=== PATIENT | male | born 1970 | race Caucasian/White ===

== ENCOUNTER 2017-09-30 15:24 | Inpatient (IN) | payer MEDICARE, MEDICAID ==
[~2017-09-30] VITALS: Ht 180.3 cm; Wt 72.7 kg
[~2017-09-30 15:24] MED LIST: DIPH1TAB PO; HYDR-565 PO; LEVO50TA67 PO; LISI10TA4 PO; LOPE1LIQ54 PO
[2017-09-30] MEDS ORDERED: gentamicin inj 350 MG in normal saline 100ml IV soln 100 ML IV STA (15:43)
[2017-09-30] MEDS ORDERED: normal saline 1000ML IV soln IV ONE (15:45)
[2017-09-30] MEDS ORDERED: piperacillin/tazo 3.375gm/50ml 50 ML IV ONE (15:45)
[2017-09-30 16:57] LABS: BASOPHILS % (AUTO) 0.1 % (0-1); EOSINOPHILS # (AUTO) 0.2 X10'3 (0-0.9); EOSINOPHILS % (AUTO) 3.1 % (0-6); HEMATOCRIT 42.2 % (42.0-52.0); HEMOGLOBIN 14.6 g/dl (14.0-17.9); LYMPHOCYTES # (AUTO) 1.2 X10'3 (1.1-4.8); LYMPHOCYTES % (AUTO) 17.8 % (21-51); MEAN CORPUSCULAR HEMOGLOBIN 31.6 PG (27.0-31.0); MEAN CORPUSCULAR HGB CONC 34.6 % (33.0-36.5); MEAN CORPUSCULAR VOLUME 91.4 FL (78-98); MEAN PLATELET VOLUME 7.7 FL (7.4-10.4); MONOCYTES # (AUTO) 0.4 X10'3 (0-0.9); MONOCYTES % (AUTO) 5.5 % (2-12); NEUTROPHILS # (AUTO) 4.8 X10'3 (1.8-7.7); NEUTROPHILS % (AUTO) 73.5 % (42-75); PLATELET COUNT 171 X10'3 (140-440); RED BLOOD COUNT 4.62 X10'6 (4.70-6.10); RED CELL DISTRIBUTION WIDTH 12.8 % (11.5-14.5); WHITE BLOOD COUNT 6.6 X10'3 (4.5-11.0)
[2017-09-30 17:16] LABS: INR 1.1 INR; PARTIAL THROMBOPLASTIN TIME 26 SECONDS (22-32); PROTHROMBIN TIME 10.9 SECONDS (9.0-12.0)
[2017-09-30 17:22] LABS: ALANINE AMINOTRANSFERASE 49 U/L (12-78); ALBUMIN 3.6 G/DL (3.4-5.0); ALBUMIN/GLOBULIN RATIO 0.6 (1.1-1.5); ALKALINE PHOSPHATASE 95 IU/L (46-116); ANION GAP 11 (8-16); ASPARTATE AMINO TRANSFERASE 33 U/L (10-37); BILIRUBIN,TOTAL 0.7 MG/DL (0.1-1.0); BLOOD UREA NITROGEN 10 MG/DL (7-18); BUN/CREATININE RATIO 16.9 (5.4-32.0); CALCIUM 9.6 MG/DL (8.5-10.1); CHLORIDE 101 MMOL/L (99-107); CREATININE 0.59 MG/DL (0.60-1.10); GLUCOSE 110 MG/DL (70-104); MAGNESIUM 1.7 MG/DL (1.5-2.4); POTASSIUM 4.1 MMOL/L (3.5-5.1); SODIUM 138 MMOL/L (135-145); TOTAL CARBON DIOXIDE 26.5 MMOL/L (24-32); TOTAL PROTEIN 9.6 G/DL (6.4-8.2); eGFR > 90 ML/MIN
[2017-09-30 17:44] LABS: C-REACTIVE PROTEIN 1.99 MG/DL (0.0-0.5)
[2017-09-30] MEDS ORDERED: ondansetron/PF 4mg/2ml inj IV ONE (18:55)
[2017-09-30] MEDS ORDERED: morphine 2 MG/ML inj. syringe IV PRN (18:55)
[2017-09-30] MEDS ORDERED: normal saline 1000ML IV soln IVB ONE (18:55)
[2017-09-30] MEDS: morphine 4 MG/ML inj SYRINge IV PRN ×2 (19:56→22:50)
[2017-09-30] MEDS: normal saline 1000ml 1,000 ML IV SCH (20:16)
[2017-09-30] MEDS ORDERED: bisacodyl 10mg suppository rectal RC PRN (20:20)
[2017-09-30] MEDS ORDERED: diphenhydrAMINE 50 mg/ml inj IV PRN (20:20)
[2017-09-30] MEDS ORDERED: HYDROmorphone inj. 0.5 MG/0.5 ML DISP.SYRIN IV PRN ×2 (20:20)
[2017-09-30] MEDS ORDERED: metoclopramide 5 mg/ml inj IV PRN (20:20)
[2017-09-30] MEDS ORDERED: acetaminophen 650mg rectal suppository RC PRN (20:20)
[2017-09-30] MEDS ORDERED: mag hydrox/Alum hydrox/simeth 30ml oral suspension PO PRN (20:20)
[2017-09-30] MEDS ORDERED: acetaminophen 325mg tablet PO PRN (20:20)
[2017-09-30] MEDS ORDERED: magnesium hydroxide 30ml (MOM) UD suspension PO PRN (20:20)
[2017-09-30] MEDS ORDERED: HYDROcodone/acetaminophen 5mg/325mg tablet PO PRN (20:20)
[2017-09-30 20:51] LABS: PHOSPHORUS 3.9 MG/DL (2.3-4.5)
[2017-09-30] MEDS ORDERED: temazepam 15mg capsule PO PRN (21:00)
[2017-09-30 21:24] LABS: CLARITY,URINE CLOUDY (Clear); COLOR,URINE YELLOW (Yellow); GLUCOSE, URINE NEGATIVE (Neg); KETONES,URINE NEGATIVE (Neg); LEUKOCYTE ESTERASE ,URINE LARGE (Neg); NITRITES, URINE POSITIVE (Neg); OCCULT BLOOD,URINE LARGE (Neg); PROTEIN,URINE 30 mg/dl (Neg); UROBILINOGEN,URINE 0.2 E.U/dL (0.2-1.0)
[2017-09-30 21:27] LABS: UA COLLECTION TYPE FOLEY CATH
[2017-09-30 21:31] LABS: WBC,URINE TNTC /HPF (0-4)
[2017-09-30 21:32] LABS: BACTERIA,URINE 4+ /HPF (Neg); MUCUS STRANDS MANY /LPF (Neg); SQUAMOUS EPITHELIAL CELL,UR FEW /LPF (FEW)
[2017-09-30 21:37] LABS: URINE AMPHETAMINE SCREEN NEGATIVE (Neg); URINE BARBITUATE SCREEN NEGATIVE (Neg); URINE BENZODIAZEPINES SCREEN NEGATIVE (Neg); URINE CANNABINOID SCREEN POSITIVE (Neg); URINE COCAINE SCREEN NEGATIVE (Neg); URINE METHADONE SCREEN NEGATIVE (Neg); URINE OPIATE SCREEN POSITIVE (Neg); URINE PHENCYCLIDINE SCREEN NEGATIVE (Neg)
[2017-10-01] MEDS: piperacillin/tazo 4.5gm/100ml 100 ML IV SCH ×3 (00:35→16:56)
[2017-10-01] MEDS: HYDROcodone/acetaminophen 10/325mg tab PO PRN ×3 (06:00→20:26)
[2017-10-01 06:38] LABS: BASOPHILS % (AUTO) 0.4 % (0-1); EOSINOPHILS # (AUTO) 0.1 X10'3 (0-0.9); EOSINOPHILS % (AUTO) 4.5 % (0-6); LYMPHOCYTES # (AUTO) 0.5 X10'3 (1.1-4.8); LYMPHOCYTES % (AUTO) 14.3 % (21-51); MEAN CORPUSCULAR HEMOGLOBIN 31.9 PG (27.0-31.0); MEAN CORPUSCULAR HGB CONC 35.3 % (33.0-36.5); MEAN CORPUSCULAR VOLUME 90.5 FL (78-98); MEAN PLATELET VOLUME 7.6 FL (7.4-10.4); MONOCYTES # (AUTO) 0.2 X10'3 (0-0.9); MONOCYTES % (AUTO) 6.4 % (2-12); NEUTROPHILS # (AUTO) 2.4 X10'3 (1.8-7.7); NEUTROPHILS % (AUTO) 74.4 % (42-75); PLATELET COUNT 104 X10'3 (140-440); RED BLOOD COUNT 3.76 X10'6 (4.70-6.10); RED CELL DISTRIBUTION WIDTH 12.8 % (11.5-14.5); WHITE BLOOD COUNT 3.3 X10'3 (4.5-11.0)
[2017-10-01 07:02] LABS: ALANINE AMINOTRANSFERASE 40 U/L (12-78); ALBUMIN 2.6 G/DL (3.4-5.0); ALBUMIN/GLOBULIN RATIO 0.6 (1.1-1.5); ALKALINE PHOSPHATASE 62 IU/L (46-116); ANION GAP 8 (8-16); ASPARTATE AMINO TRANSFERASE 29 U/L (10-37); BILIRUBIN,TOTAL 0.9 MG/DL (0.1-1.0); BLOOD UREA NITROGEN 7 MG/DL (7-18); BUN/CREATININE RATIO 12.1 (5.4-32.0); CHLORIDE 107 MMOL/L (99-107); CREATININE 0.58 MG/DL (0.60-1.10); GLUCOSE 99 MG/DL (70-104); POTASSIUM 4.2 MMOL/L (3.5-5.1); SODIUM 141 MMOL/L (135-145); TOTAL CARBON DIOXIDE 25.9 MMOL/L (24-32); TOTAL PROTEIN 7.2 G/DL (6.4-8.2); eGFR > 90 ML/MIN
[2017-10-01] MEDS ORDERED: OMEP-50 (07:41)
[2017-10-01] MEDS: heparin, porcine 5000 units/ml vial SQ SCH ×2 (08:00→20:00)
[2017-10-01] MEDS: lisinopril 10 MG tablet PO SCH (08:00)
[2017-10-01] MEDS: nicotine 21mg patch - 24 hr TD SCH (08:00)
[2017-10-01 09:00] VITALS: BP 106/63
[2017-10-01] MEDS: normal saline 1000ml 1,000 ML IV SCH ×2 (09:07→21:23)
[2017-10-01] MEDS: docusate sod 100mg capsule PO SCH ×2 (09:08→20:00)
[2017-10-01] MEDS: levoTHYROXINE 25mcg tablet PO SCH (09:09)
[2017-10-01] MEDS: morphine 4 MG/ML inj SYRINge IV PRN (10:29)
[2017-10-01 11:00] VITALS: BP 97/60
[2017-10-01] MEDS: lactobacillus rhamnosus 10,000 MMU CELLS/CAPSULE PO SCH (16:44)
[2017-10-01 20:00] VITALS: BP 101/60
[2017-10-02] VITALS: BP 114/66
[2017-10-02] MEDS: piperacillin/tazo 4.5gm/100ml 100 ML IV SCH (00:16)
[2017-10-02] MEDS: morphine 4 MG/ML inj SYRINge IV PRN ×2 (00:17→09:11)
[2017-10-02] MEDS: normal saline 1000ml 1,000 ML IV SCH ×3 (02:16→17:43)
[2017-10-02] MEDS: HYDROcodone/acetaminophen 10/325mg tab PO PRN ×4 (05:36→22:34)
[2017-10-02 05:39] LABS: HEMATOCRIT 34.2 % (42.0-52.0); HEMOGLOBIN 12.1 g/dl (14.0-17.9); MEAN CORPUSCULAR HEMOGLOBIN 31.9 PG (27.0-31.0); MEAN CORPUSCULAR HGB CONC 35.2 % (33.0-36.5); MEAN CORPUSCULAR VOLUME 90.4 FL (78-98); MEAN PLATELET VOLUME 7.7 FL (7.4-10.4); PLATELET COUNT 98 X10'3 (140-440); RED BLOOD COUNT 3.78 X10'6 (4.70-6.10); WHITE BLOOD COUNT 2.9 X10'3 (4.5-11.0)
[2017-10-02 05:56] LABS: ALANINE AMINOTRANSFERASE 43 U/L (12-78); ALBUMIN 2.6 G/DL (3.4-5.0); ALBUMIN/GLOBULIN RATIO 0.6 (1.1-1.5); ALKALINE PHOSPHATASE 65 IU/L (46-116); ANION GAP 4 (8-16); ASPARTATE AMINO TRANSFERASE 40 U/L (10-37); BILIRUBIN,TOTAL 0.7 MG/DL (0.1-1.0); BLOOD UREA NITROGEN 6 MG/DL (7-18); CALCIUM 8.6 MG/DL (8.5-10.1); CHLORIDE 107 MMOL/L (99-107); GLUCOSE 102 MG/DL (70-104); POTASSIUM 4.5 MMOL/L (3.5-5.1); SODIUM 139 MMOL/L (135-145); TOTAL CARBON DIOXIDE 27.7 MMOL/L (24-32); TOTAL PROTEIN 7.3 G/DL (6.4-8.2); eGFR > 90 ML/MIN
[2017-10-02 06:30] LABS: PLATELET ESTIMATE DECREASED; TOTAL CELLS COUNTED 100
[2017-10-02 07:00] VITALS: BP 104/66
[2017-10-02] MEDS: heparin, porcine 5000 units/ml vial SQ SCH ×2 (07:05→18:18)
[2017-10-02] MEDS ORDERED: ertapenem sod inj 1 GM in normal saline 100ml IV soln 100 ML IV SCH (08:00)
[2017-10-02] MEDS: lisinopril 10 MG tablet PO SCH (08:00)
[2017-10-02] MEDS: nicotine 21mg patch - 24 hr TD SCH (08:00)
[2017-10-02] MEDS: docusate sod 100mg capsule PO SCH ×2 (08:00→22:26)
[2017-10-02] MEDS: lactobacillus rhamnosus 10,000 MMU CELLS/CAPSULE PO SCH ×2 (10:04→22:26)
[2017-10-02] MEDS: levoTHYROXINE 25mcg tablet PO SCH (10:04)
[2017-10-02 11:43] VITALS: BP 99/63
[2017-10-02] MEDS: cefepime 2g/NS 100ml ADVANTAGE 100 ML IV SCH (17:58)
[2017-10-02 19:00] VITALS: BP 115/63
[2017-10-02] MEDS: metroNIDAZOLE-Flagyl 500mg/NS 100 ML IV SCH (22:26)
[2017-10-03] VITALS: BP 126/75
[2017-10-03] MEDS: cefepime 2g/NS 100ml ADVANTAGE 100 ML IV SCH ×4 (00:39→23:25)
[2017-10-03] MEDS: morphine 4 MG/ML inj SYRINge IV PRN (00:40)
[2017-10-03] MEDS: normal saline 1000ml 1,000 ML IV SCH ×2 (04:09→15:07)
[2017-10-03 05:18] LABS: BASOPHILS % (AUTO) 0.6 % (0-1); EOSINOPHILS # (AUTO) 0.1 X10'3 (0-0.9); EOSINOPHILS % (AUTO) 4.8 % (0-6); HEMATOCRIT 33.3 % (42.0-52.0); HEMOGLOBIN 11.6 g/dl (14.0-17.9); LYMPHOCYTES # (AUTO) 0.9 X10'3 (1.1-4.8); LYMPHOCYTES % (AUTO) 30.7 % (21-51); MEAN CORPUSCULAR HEMOGLOBIN 31.9 PG (27.0-31.0); MEAN CORPUSCULAR VOLUME 91.1 FL (78-98); MEAN PLATELET VOLUME 7.9 FL (7.4-10.4); MONOCYTES # (AUTO) 0.2 X10'3 (0-0.9); MONOCYTES % (AUTO) 7.2 % (2-12); NEUTROPHILS # (AUTO) 1.6 X10'3 (1.8-7.7); NEUTROPHILS % (AUTO) 56.7 % (42-75); PLATELET COUNT 108 X10'3 (140-440); RED BLOOD COUNT 3.66 X10'6 (4.70-6.10); RED CELL DISTRIBUTION WIDTH 13.1 % (11.5-14.5); WHITE BLOOD COUNT 2.9 X10'3 (4.5-11.0)
[2017-10-03] MEDS: HYDROcodone/acetaminophen 10/325mg tab PO PRN ×5 (05:29→23:24)
[2017-10-03 06:17] LABS: ALANINE AMINOTRANSFERASE 41 U/L (12-78); ALBUMIN 2.5 G/DL (3.4-5.0); ALBUMIN/GLOBULIN RATIO 0.5 (1.1-1.5); ALKALINE PHOSPHATASE 72 IU/L (46-116); ANION GAP 7 (8-16); ASPARTATE AMINO TRANSFERASE 44 U/L (10-37); BILIRUBIN,TOTAL 0.4 MG/DL (0.1-1.0); BLOOD UREA NITROGEN 8 MG/DL (7-18); BUN/CREATININE RATIO 12.1 (5.4-32.0); CALCIUM 8.6 MG/DL (8.5-10.1); CHLORIDE 108 MMOL/L (99-107); CREATININE 0.66 MG/DL (0.60-1.10); GLUCOSE 108 MG/DL (70-104); POTASSIUM 4.3 MMOL/L (3.5-5.1); SODIUM 142 MMOL/L (135-145); TOTAL CARBON DIOXIDE 27.4 MMOL/L (24-32); TOTAL PROTEIN 7.3 G/DL (6.4-8.2); eGFR > 90 ML/MIN
[2017-10-03] MEDS: heparin, porcine 5000 units/ml vial SQ SCH ×2 (06:25→20:00)
[2017-10-03 06:26] LABS: PLATELET ESTIMATE DECREASED; TOTAL CELLS COUNTED 100
[2017-10-03] MEDS: lisinopril 10 MG tablet PO SCH (08:00)
[2017-10-03] MEDS: nicotine 21mg patch - 24 hr TD SCH (08:00)
[2017-10-03 08:02] VITALS: BP 131/72
[2017-10-03] MEDS: lactobacillus rhamnosus 10,000 MMU CELLS/CAPSULE PO SCH ×2 (09:05→19:27)
[2017-10-03] MEDS: levoTHYROXINE 25mcg tablet PO SCH (09:06)
[2017-10-03] MEDS: docusate sod 100mg capsule PO SCH ×2 (09:06→19:27)
[2017-10-03] MEDS: metroNIDAZOLE-Flagyl 500mg/NS 100 ML IV SCH ×2 (09:08→21:05)
[2017-10-03 11:00] VITALS: BP 120/70
[2017-10-03] MEDS: diphenhydrAMINE 25mg capsule PO PRN (19:41)
[2017-10-03 20:00] VITALS: BP 135/88
[2017-10-04] VITALS: BP 110/69
[2017-10-04] MEDS: normal saline 1000ml 1,000 ML IV SCH ×3 (02:53→23:11)
[2017-10-04] MEDS: morphine 4 MG/ML inj SYRINge IV PRN ×2 (02:55→21:39)
[2017-10-04 05:21] LABS: BASOPHILS % (AUTO) 0.4 % (0-1); EOSINOPHILS # (AUTO) 0.2 X10'3 (0-0.9); EOSINOPHILS % (AUTO) 6.5 % (0-6); HEMATOCRIT 33.7 % (42.0-52.0); HEMOGLOBIN 11.7 g/dl (14.0-17.9); LYMPHOCYTES # (AUTO) 0.9 X10'3 (1.1-4.8); LYMPHOCYTES % (AUTO) 36.1 % (21-51); MEAN CORPUSCULAR HEMOGLOBIN 31.8 PG (27.0-31.0); MEAN CORPUSCULAR HGB CONC 34.7 % (33.0-36.5); MEAN CORPUSCULAR VOLUME 91.6 FL (78-98); MEAN PLATELET VOLUME 7.7 FL (7.4-10.4); MONOCYTES # (AUTO) 0.2 X10'3 (0-0.9); MONOCYTES % (AUTO) 7.3 % (2-12); NEUTROPHILS # (AUTO) 1.3 X10'3 (1.8-7.7); NEUTROPHILS % (AUTO) 49.7 % (42-75); PLATELET COUNT 99 X10'3 (140-440); RED BLOOD COUNT 3.68 X10'6 (4.70-6.10); RED CELL DISTRIBUTION WIDTH 13.3 % (11.5-14.5); WHITE BLOOD COUNT 2.5 X10'3 (4.5-11.0)
[2017-10-04 06:01] LABS: ALANINE AMINOTRANSFERASE 58 U/L (12-78); ALBUMIN 2.5 G/DL (3.4-5.0); ALBUMIN/GLOBULIN RATIO 0.5 (1.1-1.5); ALKALINE PHOSPHATASE 73 IU/L (46-116); ANION GAP 5 (8-16); ASPARTATE AMINO TRANSFERASE 56 U/L (10-37); BILIRUBIN,TOTAL 0.4 MG/DL (0.1-1.0); BLOOD UREA NITROGEN 8 MG/DL (7-18); CALCIUM 8.4 MG/DL (8.5-10.1); CHLORIDE 108 MMOL/L (99-107); CREATININE 0.57 MG/DL (0.60-1.10); GLUCOSE 125 MG/DL (70-104); POTASSIUM 4.7 MMOL/L (3.5-5.1); SODIUM 140 MMOL/L (135-145); TOTAL CARBON DIOXIDE 27.1 MMOL/L (24-32); TOTAL PROTEIN 7.1 G/DL (6.4-8.2); eGFR > 90 ML/MIN
[2017-10-04] MEDS: heparin, porcine 5000 units/ml vial SQ SCH ×2 (06:28→20:00)
[2017-10-04] MEDS: nicotine 21mg patch - 24 hr TD SCH (06:29)
[2017-10-04] MEDS: cefepime 2g/NS 100ml ADVANTAGE 100 ML IV SCH ×2 (06:48→15:35)
[2017-10-04 07:12] LABS: TOTAL CELLS COUNTED 100
[2017-10-04 07:13] LABS: PLATELET ESTIMATE DECREASED
[2017-10-04] MEDS: levoTHYROXINE 25mcg tablet PO SCH (07:58)
[2017-10-04] MEDS: docusate sod 100mg capsule PO SCH ×2 (07:58→20:20)
[2017-10-04] MEDS: lactobacillus rhamnosus 10,000 MMU CELLS/CAPSULE PO SCH ×2 (07:58→20:20)
[2017-10-04 08:00] VITALS: BP 122/74
[2017-10-04] MEDS: lisinopril 10 MG tablet PO SCH (08:00)
[2017-10-04] MEDS: metroNIDAZOLE-Flagyl 500mg/NS 100 ML IV SCH (08:08)
[2017-10-04] MEDS: HYDROcodone/acetaminophen 10/325mg tab PO PRN ×3 (08:58→19:07)
[2017-10-04 11:00] VITALS: BP 130/83
[2017-10-04 20:00] VITALS: BP 122/81
[2017-10-04 23:00] VITALS: BP 134/76
[2017-10-05] MEDS: morphine 4 MG/ML inj SYRINge IV PRN ×2 (04:49→23:30)
[2017-10-05 06:55] LABS: BASOPHILS % (AUTO) 0.7 % (0-1); EOSINOPHILS # (AUTO) 0.1 X10'3 (0-0.9); EOSINOPHILS % (AUTO) 6.2 % (0-6); HEMATOCRIT 33.2 % (42.0-52.0); HEMOGLOBIN 11.6 g/dl (14.0-17.9); LYMPHOCYTES # (AUTO) 0.8 X10'3 (1.1-4.8); LYMPHOCYTES % (AUTO) 32.2 % (21-51); MEAN CORPUSCULAR VOLUME 91.5 FL (78-98); MEAN PLATELET VOLUME 7.5 FL (7.4-10.4); MONOCYTES # (AUTO) 0.2 X10'3 (0-0.9); MONOCYTES % (AUTO) 6.4 % (2-12); NEUTROPHILS # (AUTO) 1.3 X10'3 (1.8-7.7); NEUTROPHILS % (AUTO) 54.5 % (42-75); PLATELET COUNT 94 X10'3 (140-440); RED BLOOD COUNT 3.63 X10'6 (4.70-6.10); WHITE BLOOD COUNT 2.4 X10'3 (4.5-11.0)
[2017-10-05 07:24] LABS: ALANINE AMINOTRANSFERASE 57 U/L (12-78); ALBUMIN 2.5 G/DL (3.4-5.0); ALBUMIN/GLOBULIN RATIO 0.5 (1.1-1.5); ALKALINE PHOSPHATASE 65 IU/L (46-116); ANION GAP 8 (8-16); ASPARTATE AMINO TRANSFERASE 52 U/L (10-37); BILIRUBIN,TOTAL 0.4 MG/DL (0.1-1.0); BLOOD UREA NITROGEN 6 MG/DL (7-18); BUN/CREATININE RATIO 14.3 (5.4-32.0); CALCIUM 8.5 MG/DL (8.5-10.1); CHLORIDE 111 MMOL/L (99-107); CREATININE 0.42 MG/DL (0.60-1.10); GLUCOSE 100 MG/DL (70-104); SODIUM 143 MMOL/L (135-145); TOTAL CARBON DIOXIDE 23.7 MMOL/L (24-32); TOTAL PROTEIN 7.1 G/DL (6.4-8.2); eGFR > 90 ML/MIN
[2017-10-05 07:53] VITALS: BP 132/81
[2017-10-05] MEDS: nicotine 21mg patch - 24 hr TD SCH (08:00)
[2017-10-05] MEDS: heparin, porcine 5000 units/ml vial SQ SCH ×2 (08:00→20:00)
[2017-10-05] MEDS: docusate sod 100mg capsule PO SCH ×2 (08:37→20:00)
[2017-10-05] MEDS: levoTHYROXINE 25mcg tablet PO SCH (08:38)
[2017-10-05] MEDS: lisinopril 10 MG tablet PO SCH (08:38)
[2017-10-05] MEDS: lactobacillus rhamnosus 10,000 MMU CELLS/CAPSULE PO SCH ×2 (08:38→20:49)
[2017-10-05] MEDS: multivitamins, therapeutics tablet PO SCH (08:38)
[2017-10-05 11:13] LABS: TOTAL CELLS COUNTED 100
[2017-10-05 11:14] LABS: PLATELET ESTIMATE DECREASED
[2017-10-05] MEDS: normal saline 1000ml 1,000 ML IV SCH ×2 (11:15→20:16)
[2017-10-05 11:16] LABS: ANISOCYTOSIS FEW
[2017-10-05] MEDS: cefepime 2g/NS 100ml ADVANTAGE 100 ML IV SCH ×2 (12:14→20:50)
[2017-10-05 12:54] VITALS: BP 119/67
[2017-10-05] MEDS: metroNIDAZOLE-Flagyl 500mg/NS 100 ML IV SCH ×2 (13:04→21:59)
[2017-10-05] MEDS: HYDROcodone/acetaminophen 10/325mg tab PO PRN ×2 (13:08→20:50)
[2017-10-05 19:00] VITALS: BP 142/84
[2017-10-06] VITALS: BP 142/76
[2017-10-06] MEDS: HYDROcodone/acetaminophen 10/325mg tab PO PRN ×5 (02:32→21:32)
[2017-10-06] MEDS: multivitamins, therapeutics tablet PO SCH (07:16)
[2017-10-06] MEDS: metroNIDAZOLE-Flagyl 500mg/NS 100 ML IV SCH (07:16)
[2017-10-06] MEDS: lisinopril 10 MG tablet PO SCH (07:17)
[2017-10-06] MEDS: lactobacillus rhamnosus 10,000 MMU CELLS/CAPSULE PO SCH ×2 (07:17→21:18)
[2017-10-06] MEDS: levoTHYROXINE 25mcg tablet PO SCH (07:17)
[2017-10-06] MEDS: heparin, porcine 5000 units/ml vial SQ SCH ×2 (07:18→20:00)
[2017-10-06] MEDS: docusate sod 100mg capsule PO SCH ×2 (07:18→20:00)
[2017-10-06 07:24] VITALS: BP 158/83
[2017-10-06 07:48] LABS: BASOPHILS % (AUTO) 0.5 % (0-1); EOSINOPHILS # (AUTO) 0.2 X10'3 (0-0.9); EOSINOPHILS % (AUTO) 5.9 % (0-6); HEMOGLOBIN 11.7 g/dl (14.0-17.9); LYMPHOCYTES % (AUTO) 30.6 % (21-51); MEAN CORPUSCULAR HEMOGLOBIN 32.3 PG (27.0-31.0); MEAN CORPUSCULAR HGB CONC 35.4 % (33.0-36.5); MEAN CORPUSCULAR VOLUME 91.1 FL (78-98); MEAN PLATELET VOLUME 7.3 FL (7.4-10.4); MONOCYTES # (AUTO) 0.2 X10'3 (0-0.9); MONOCYTES % (AUTO) 6.2 % (2-12); NEUTROPHILS # (AUTO) 1.8 X10'3 (1.8-7.7); NEUTROPHILS % (AUTO) 56.8 % (42-75); PLATELET COUNT 91 X10'3 (140-440); RED BLOOD COUNT 3.63 X10'6 (4.70-6.10); WHITE BLOOD COUNT 3.1 X10'3 (4.5-11.0)
[2017-10-06] MEDS: nicotine 21mg patch - 24 hr TD SCH (08:00)
[2017-10-06 08:09] LABS: ALANINE AMINOTRANSFERASE 48 U/L (12-78); ALBUMIN 2.6 G/DL (3.4-5.0); ALBUMIN/GLOBULIN RATIO 0.6 (1.1-1.5); ALKALINE PHOSPHATASE 73 IU/L (46-116); ANION GAP 9 (8-16); ASPARTATE AMINO TRANSFERASE 36 U/L (10-37); BILIRUBIN,TOTAL 0.3 MG/DL (0.1-1.0); BLOOD UREA NITROGEN 8 MG/DL (7-18); BUN/CREATININE RATIO 15.4 (5.4-32.0); CALCIUM 8.5 MG/DL (8.5-10.1); CHLORIDE 109 MMOL/L (99-107); CREATININE 0.52 MG/DL (0.60-1.10); GLUCOSE 111 MG/DL (70-104); POTASSIUM 3.9 MMOL/L (3.5-5.1); SODIUM 141 MMOL/L (135-145); TOTAL PROTEIN 7.1 G/DL (6.4-8.2); eGFR > 90 ML/MIN
[2017-10-06] MEDS: cefepime 2g/NS 100ml ADVANTAGE 100 ML IV SCH ×2 (08:53→21:16)
[2017-10-06] MEDS: normal saline 1000ml 1,000 ML IV SCH ×3 (08:55→21:12)
[2017-10-06 11:48] VITALS: BP 151/77
[2017-10-06] MEDS: metroNIDAZOLE 500mg tablet PO SCH (17:01)
[2017-10-06 19:00] VITALS: BP 146/76
[2017-10-06] MEDS: morphine 4 MG/ML inj SYRINge IV PRN (23:19)
[2017-10-06] MEDS: ondansetron/PF 4mg/2ml inj IV PRN (23:22)
[2017-10-07] VITALS: BP 148/86
[2017-10-07] MEDS: ondansetron/PF 4mg/2ml inj IV PRN (06:55)
[2017-10-07] MEDS: lactobacillus rhamnosus 10,000 MMU CELLS/CAPSULE PO SCH ×2 (06:56→21:01)
[2017-10-07] MEDS: HYDROcodone/acetaminophen 10/325mg tab PO PRN ×4 (06:56→22:25)
[2017-10-07] MEDS: multivitamins, therapeutics tablet PO SCH (06:56)
[2017-10-07] MEDS: levoTHYROXINE 25mcg tablet PO SCH (06:57)
[2017-10-07] MEDS: normal saline 1000ml 1,000 ML IV SCH ×2 (06:57→21:02)
[2017-10-07] MEDS: metroNIDAZOLE 500mg tablet PO SCH ×2 (06:57→17:19)
[2017-10-07] MEDS: lisinopril 10 MG tablet PO SCH (06:57)
[2017-10-07] MEDS: nicotine 21mg patch - 24 hr TD SCH (06:57)
[2017-10-07] MEDS: heparin, porcine 5000 units/ml vial SQ SCH ×2 (06:58→20:00)
[2017-10-07] MEDS: docusate sod 100mg capsule PO SCH ×2 (06:58→20:00)
[2017-10-07 07:54] VITALS: BP 151/85
[2017-10-07] MEDS: cefepime 2g/NS 100ml ADVANTAGE 100 ML IV SCH ×2 (08:00→21:01)
[2017-10-07 09:25] LABS: BASOPHILS % (AUTO) 0.3 % (0-1); EOSINOPHILS # (AUTO) 0.1 X10'3 (0-0.9); EOSINOPHILS % (AUTO) 4.8 % (0-6); HEMATOCRIT 32.9 % (42.0-52.0); HEMOGLOBIN 11.6 g/dl (14.0-17.9); LYMPHOCYTES # (AUTO) 0.9 X10'3 (1.1-4.8); LYMPHOCYTES % (AUTO) 29.5 % (21-51); MEAN CORPUSCULAR HGB CONC 35.1 % (33.0-36.5); MEAN CORPUSCULAR VOLUME 91.1 FL (78-98); MONOCYTES # (AUTO) 0.1 X10'3 (0-0.9); MONOCYTES % (AUTO) 4.2 % (2-12); NEUTROPHILS # (AUTO) 1.8 X10'3 (1.8-7.7); NEUTROPHILS % (AUTO) 61.2 % (42-75); PLATELET COUNT 92 X10'3 (140-440); RED BLOOD COUNT 3.62 X10'6 (4.70-6.10); RED CELL DISTRIBUTION WIDTH 13.3 % (11.5-14.5); WHITE BLOOD COUNT 2.9 X10'3 (4.5-11.0)
[2017-10-07 09:29] LABS: ALANINE AMINOTRANSFERASE 41 U/L (12-78); ALBUMIN 2.7 G/DL (3.4-5.0); ALBUMIN/GLOBULIN RATIO 0.6 (1.1-1.5); ALKALINE PHOSPHATASE 72 IU/L (46-116); ANION GAP 8 (8-16); ASPARTATE AMINO TRANSFERASE 32 U/L (10-37); BILIRUBIN,TOTAL 0.3 MG/DL (0.1-1.0); BLOOD UREA NITROGEN 5 MG/DL (7-18); BUN/CREATININE RATIO 9.1 (5.4-32.0); CALCIUM 8.5 MG/DL (8.5-10.1); CHLORIDE 109 MMOL/L (99-107); CREATININE 0.55 MG/DL (0.60-1.10); GLUCOSE 173 MG/DL (70-104); POTASSIUM 3.8 MMOL/L (3.5-5.1); SODIUM 143 MMOL/L (135-145); TOTAL CARBON DIOXIDE 26.3 MMOL/L (24-32); TOTAL PROTEIN 7.4 G/DL (6.4-8.2); eGFR > 90 ML/MIN
[2017-10-07 10:12] LABS: PLATELET ESTIMATE DECREASED; TOTAL CELLS COUNTED 100
[2017-10-07 11:58] VITALS: BP 145/89
[2017-10-07 19:00] VITALS: BP 166/82
[2017-10-07] MEDS: morphine 4 MG/ML inj SYRINge IV PRN (21:19)
[2017-10-08 00:03] VITALS: BP 152/82
[2017-10-08] MEDS: HYDROcodone/acetaminophen 10/325mg tab PO PRN ×5 (03:14→21:56)
[2017-10-08] MEDS: morphine 4 MG/ML inj SYRINge IV PRN (05:24)
[2017-10-08 07:00] VITALS: BP 153/52
[2017-10-08] MEDS: heparin, porcine 5000 units/ml vial SQ SCH (08:00)
[2017-10-08] MEDS: nicotine 21mg patch - 24 hr TD SCH (08:00)
[2017-10-08] MEDS: normal saline 1000ml 1,000 ML IV SCH ×2 (08:16→15:25)
[2017-10-08] MEDS: ondansetron/PF 4mg/2ml inj IV PRN (08:51)
[2017-10-08] MEDS: levoTHYROXINE 25mcg tablet PO SCH (08:52)
[2017-10-08] MEDS: multivitamins, therapeutics tablet PO SCH (08:52)
[2017-10-08] MEDS: cefepime 2g/NS 100ml ADVANTAGE 100 ML IV SCH ×2 (08:52→20:23)
[2017-10-08] MEDS: lisinopril 10 MG tablet PO SCH (08:52)
[2017-10-08] MEDS: lactobacillus rhamnosus 10,000 MMU CELLS/CAPSULE PO SCH ×2 (08:52→20:23)
[2017-10-08] MEDS: docusate sod 100mg capsule PO SCH ×2 (08:53→20:23)
[2017-10-08] MEDS: metroNIDAZOLE 500mg tablet PO SCH ×2 (08:53→17:36)
[2017-10-08 11:00] VITALS: BP 159/73
[2017-10-08 20:00] VITALS: BP 150/82
[2017-10-09] VITALS: BP 134/76
[2017-10-09] MEDS: HYDROcodone/acetaminophen 10/325mg tab PO PRN ×5 (02:21→22:36)
[2017-10-09] MEDS: normal saline 1000ml 1,000 ML IV SCH ×3 (02:21→23:15)
[2017-10-09] MEDS: cefepime 2g/NS 100ml ADVANTAGE 100 ML IV SCH ×2 (07:46→19:31)
[2017-10-09] MEDS: levoTHYROXINE 25mcg tablet PO SCH (07:47)
[2017-10-09] MEDS: metroNIDAZOLE 500mg tablet PO SCH ×2 (07:47→17:23)
[2017-10-09] MEDS: lisinopril 10 MG tablet PO SCH (07:47)
[2017-10-09] MEDS: docusate sod 100mg capsule PO SCH ×2 (07:48→19:31)
[2017-10-09] MEDS: lactobacillus rhamnosus 10,000 MMU CELLS/CAPSULE PO SCH ×2 (07:48→19:31)
[2017-10-09] MEDS: multivitamins, therapeutics tablet PO SCH (07:48)
[2017-10-09] MEDS: nicotine 21mg patch - 24 hr TD SCH (08:00)
[2017-10-09 08:11] VITALS: BP 145/89
[2017-10-09] MEDS: diphenhydrAMINE 25mg capsule PO PRN (10:24)
[2017-10-09 12:00] VITALS: BP 145/87
[2017-10-09 18:00] VITALS: BP 164/87
[2017-10-10] VITALS: BP 149/81
[2017-10-10] MEDS: HYDROcodone/acetaminophen 10/325mg tab PO PRN ×3 (03:19→14:05)
[2017-10-10 07:30] VITALS: BP 154/87
[2017-10-10] MEDS: nicotine 21mg patch - 24 hr TD SCH (08:00)
[2017-10-10] MEDS: cefepime 2g/NS 100ml ADVANTAGE 100 ML IV SCH (08:07)
[2017-10-10] MEDS: multivitamins, therapeutics tablet PO SCH (08:08)
[2017-10-10] MEDS: docusate sod 100mg capsule PO SCH (08:08)
[2017-10-10] MEDS: metroNIDAZOLE 500mg tablet PO SCH (08:08)
[2017-10-10] MEDS: lactobacillus rhamnosus 10,000 MMU CELLS/CAPSULE PO SCH (08:08)
[2017-10-10] MEDS: lisinopril 10 MG tablet PO SCH (08:09)
[2017-10-10] MEDS: levoTHYROXINE 25mcg tablet PO SCH (08:09)
[2017-10-10] MEDS: normal saline 1000ml 1,000 ML IV SCH (10:16)
[2017-10-10 12:00] VITALS: BP 154/86
== END 2017-10-10 14:24 | DRG 539 ==
LOC: ER 15:25 → ED HOLD 20:16 → SUR 3N 10-01 08:06
PROVIDERS: ADMIT Family Medicine; ATTEND Internal Medicine
DX: M86.8X8 Other osteomyelitis, other site (principal); L89.314 Pressure ulcer of right buttock, stage 4; D61.818 Other pancytopenia; G82.20 Paraplegia, unspecified; L03.317 Cellulitis of buttock; N39.0 Urinary tract infection, site not specified; E03.9 Hypothyroidism, unspecified; L08.9 Local infection of the skin and subcutaneous tissue, unspecified; K76.0 Fatty (change of) liver, not elsewhere classified; I10 Essential (primary) hypertension; F12.90 Cannabis use, unspecified, uncomplicated; F17.210 Nicotine dependence, cigarettes, uncomplicated; Z22.322 Carrier or suspected carrier of Methicillin resistant Staphylococcus aureus; Z89.511 Acquired absence of right leg below knee; Z89.512 Acquired absence of left leg below knee; Z93.3 Colostomy status; Z99.3 Dependence on wheelchair; Z88.1 Allergy status to other antibiotic agents; Z86.14 Personal history of Methicillin resistant Staphylococcus aureus infection
CPT/HCPCS: 36415; 71045; 76700; 80053; 80305; 81001; 83605; 83735; 83880; 84100; 84145; 85025; 85610; 85651; 85730; 86140; 87040; 87070; 87077; 87088; 87186; 93005; 96365; 96375; 99285; A4310; A4421; A6212; A6213; A6223; A6255; A6258; A6449; J0692; J1200; J1335; J1580; J1644; J2270; J2405; J2543; J3490; J7030; Q0163

== ENCOUNTER 2018-05-20 01:33 | Emergency (ER) | payer MEDICARE, MEDICAID ==
[~2018-05-20] VITALS: Ht 185.4 cm; Wt 86.4 kg
[~2018-05-20 01:33] MED LIST changes: -DIPH1TAB PO; -HYDR-565 PO; -LOPE1LIQ54 PO; +OMEP-50
[2018-05-20] MEDS ORDERED: diphenhydrAMINE 50 mg/ml inj IV ONE (02:10)
[2018-05-20] MEDS ORDERED: famotidine/PF 10 mg/ml inj IV ONE (02:10)
[2018-05-20] MEDS ORDERED: methylPREDNISolone sod succ 125mg/2ml vial IV ONE (02:10)
[2018-05-20] MEDS ORDERED: normal saline 1000ML IV soln IVB ONE (02:10)
[2018-05-20] MEDS ORDERED: epiNEPHrine 1 mg/ml inj SQ ONE (02:15)
[2018-05-20] MEDS ORDERED: ondansetron/PF 4mg/2ml inj IV ONE ×2 (02:45)
[2018-05-20 02:59] LABS: ALANINE AMINOTRANSFERASE 43 U/L (12-78); ALBUMIN 3.1 G/DL (3.4-5.0); ALBUMIN/GLOBULIN RATIO 0.5 (1.1-1.5); ALKALINE PHOSPHATASE 113 IU/L (46-116); ANION GAP 11 (8-16); ASPARTATE AMINO TRANSFERASE 84 U/L (10-37); BILIRUBIN,TOTAL 0.8 MG/DL (0.1-1.0); BLOOD UREA NITROGEN 2 MG/DL (7-18); BUN/CREATININE RATIO 4.4 (5.4-32.0); CALCIUM 8.3 MG/DL (8.5-10.1); CHLORIDE 102 MMOL/L (99-107); CREATININE 0.45 MG/DL (0.60-1.10); ETHANOL 0.244 GM/DL (0.0-0.010); GLUCOSE 146 MG/DL (70-104); POTASSIUM 3.4 MMOL/L (3.5-5.1); SODIUM 138 MMOL/L (135-145); TOTAL CARBON DIOXIDE 25.2 MMOL/L (24-32); TOTAL PROTEIN 8.9 G/DL (6.4-8.2); eGFR > 90 ML/MIN
[2018-05-20 03:04] LABS: INR 1.2 INR; PROTHROMBIN TIME 12.4 SECONDS (9.0-12.0)
[2018-05-20] MEDS ORDERED: iohexol 300mg/ml 100ml inj. ONE ×2 (03:28→07:08)
[2018-05-20 04:24] LABS: BASOPHILS % (AUTO) 0.5 % (0-1); EOSINOPHILS # (AUTO) 0.1 X10'3 (0-0.9); EOSINOPHILS % (AUTO) 1.6 % (0-6); HEMATOCRIT 43.1 % (42.0-52.0); HEMOGLOBIN 14.1 g/dl (14.0-17.9); LYMPHOCYTES # (AUTO) 1.2 X10'3 (1.1-4.8); MEAN CORPUSCULAR HEMOGLOBIN 32.7 PG (27.0-31.0); MEAN CORPUSCULAR HGB CONC 32.8 % (33.0-36.5); MEAN CORPUSCULAR VOLUME 99.8 FL (78-98); MEAN PLATELET VOLUME 8.2 FL (7.4-10.4); MONOCYTES # (AUTO) 0.1 X10'3 (0-0.9); MONOCYTES % (AUTO) 2.5 % (2-12); NEUTROPHILS # (AUTO) 4.3 X10'3 (1.8-7.7); NEUTROPHILS % (AUTO) 75.4 % (42-75); PLATELET COUNT 167 X10'3 (140-440); RED BLOOD COUNT 4.32 X10'6 (4.70-6.10); WHITE BLOOD COUNT 5.7 X10'3 (4.5-11.0)
[2018-05-20 05:32] LABS: URINE AMPHETAMINE SCREEN NEGATIVE (Neg); URINE BARBITUATE SCREEN NEGATIVE (Neg); URINE BENZODIAZEPINES SCREEN NEGATIVE (Neg); URINE CANNABINOID SCREEN NEGATIVE (Neg); URINE COCAINE SCREEN NEGATIVE (Neg); URINE METHADONE SCREEN NEGATIVE (Neg); URINE OPIATE SCREEN NEGATIVE (Neg); URINE PHENCYCLIDINE SCREEN NEGATIVE (Neg)
[2018-05-20 06:07] LABS: CLARITY,URINE CLEAR (Clear); COLOR,URINE YELLOW (Yellow); GLUCOSE, URINE NEGATIVE (Neg); KETONES,URINE TRACE mg/dl (Neg); LEUKOCYTE ESTERASE ,URINE TRACE (Neg); NITRITES, URINE POSITIVE (Neg); OCCULT BLOOD,URINE NEGATIVE (Neg); PROTEIN,URINE NEGATIVE (Neg); UROBILINOGEN,URINE 0.2 E.U/dL (0.2-1.0)
[2018-05-20 06:08] LABS: UA COLLECTION TYPE NON-SPECIFIED
[2018-05-20 06:33] LABS: BACTERIA,URINE FEW /HPF (Neg); MUCUS STRANDS NONE SEEN /LPF (Neg); RBC,URINE NONE SEEN /HPF (0-2); SQUAMOUS EPITHELIAL CELL,UR NONE SEEN /LPF (FEW); WBC,URINE 0-4 /HPF (0-4)
[2018-05-20] MEDS ORDERED: diatrozoate meglu/diatrozoate sod (37% iodine) 120ML oral solution PO ONE (07:05)
[2018-05-20] MEDS ORDERED: morphine 4 MG/ML inj SYRINge IV ONE (07:05)
[2018-05-20] MEDS ORDERED: diatr meglu/diatrizoate 30ml oral sol.-(3 dose) bottle PO ONE (08:00)
[2018-05-20 09:20] LABS: BASOPHILS % (AUTO) 0.3 % (0-1); EOSINOPHILS % (AUTO) 0.5 % (0-6); HEMATOCRIT 40.4 % (42.0-52.0); HEMOGLOBIN 13.6 g/dl (14.0-17.9); LYMPHOCYTES # (AUTO) 0.3 X10'3 (1.1-4.8); LYMPHOCYTES % (AUTO) 7.6 % (21-51); MEAN CORPUSCULAR HEMOGLOBIN 33.6 PG (27.0-31.0); MEAN CORPUSCULAR HGB CONC 33.7 % (33.0-36.5); MEAN CORPUSCULAR VOLUME 99.7 FL (78-98); MEAN PLATELET VOLUME 8.2 FL (7.4-10.4); MONOCYTES % (AUTO) 0.7 % (2-12); NEUTROPHILS # (AUTO) 3.2 X10'3 (1.8-7.7); NEUTROPHILS % (AUTO) 90.9 % (42-75); PLATELET COUNT 126 X10'3 (140-440); RED BLOOD COUNT 4.06 X10'6 (4.70-6.10); WHITE BLOOD COUNT 3.5 X10'3 (4.5-11.0)
[2018-05-20 10:11] VITALS: BP 120/72
== END 2018-05-20 10:27 | disposition short-term general hospital (02) ==
LOC: ER 01:33
DX: K92.2 Gastrointestinal hemorrhage, unspecified (principal); T78.3XXA Angioneurotic edema, initial encounter; R11.10 Vomiting, unspecified; R13.19 Other dysphagia; G82.20 Paraplegia, unspecified; G43.909 Migraine, unspecified, not intractable, without status migrainosus; I10 Essential (primary) hypertension; E03.9 Hypothyroidism, unspecified; F17.200 Nicotine dependence, unspecified, uncomplicated; F12.90 Cannabis use, unspecified, uncomplicated; Z98.890 Other specified postprocedural states; Z88.1 Allergy status to other antibiotic agents; Z79.899 Other long term (current) drug therapy; Y92.9 Unspecified place or not applicable
CPT/HCPCS: 36415; 70360; 70490; 71045; 71250; 74176; 80053; 80305; 80320; 81001; 82140; 85025; 85610; 87077; 87088; 87186; 96361; 96372; 96374; 96375; 99291; J0171; J1200; J2270; J2405; J2930; J3490; J7030; Q9963; Q9967

== ENCOUNTER 2018-09-22 13:10 | Outpatient (CLI) | payer MEDICARE, MEDICAID ==
[2018-09-22 13:02] VITALS: BP 152/92
[~2018-09-22 13:10] MED LIST changes: -OMEP-50
== END 2018-09-22 13:55 | disposition home or self-care (01) ==
LOC: ORTHO 13:10
PROVIDERS: ATTEND Nurse Practitioner Family
DX: S72.491A Other fracture of lower end of right femur, initial encounter for closed fracture (principal); M25.461 Effusion, right knee; G43.909 Migraine, unspecified, not intractable, without status migrainosus; I10 Essential (primary) hypertension; E03.9 Hypothyroidism, unspecified; F17.210 Nicotine dependence, cigarettes, uncomplicated; F12.90 Cannabis use, unspecified, uncomplicated; Z86.14 Personal history of Methicillin resistant Staphylococcus aureus infection; Z72.89 Other problems related to lifestyle; Z98.890 Other specified postprocedural states; Z88.1 Allergy status to other antibiotic agents; Z79.899 Other long term (current) drug therapy; Z89.512 Acquired absence of left leg below knee; Z89.511 Acquired absence of right leg below knee; W17.89XA Other fall from one level to another, initial encounter; Y93.89 Activity, other specified; Y99.8 Other external cause status
CPT/HCPCS: 73560; 99213

== ENCOUNTER 2018-10-04 14:15 | Outpatient (CLI) | payer MEDICARE, MEDICAID ==
[2018-10-04 14:12] VITALS: BP 122/88
== END 2018-10-04 14:46 | disposition home or self-care (01) ==
LOC: ORTHO 14:15
PROVIDERS: ATTEND Nurse Practitioner Family
DX: S42.491 Other displaced fracture of lower end of right humerus (principal); I10 Essential (primary) hypertension; E03.9 Hypothyroidism, unspecified; F17.210 Nicotine dependence, cigarettes, uncomplicated; Z72.89 Other problems related to lifestyle; Z88.1 Allergy status to other antibiotic agents; W19.XXXD Unspecified fall, subsequent encounter
CPT/HCPCS: 99213

== ENCOUNTER 2018-10-28 10:56 | Outpatient (CLI) | payer MEDICARE, MEDICAID | END 2018-10-28 11:35 | disposition home or self-care (01) | LOC: ORTHO 10:56 | PROVIDERS: ATTEND Nurse Practitioner Family | DX: S72.491D Other fracture of lower end of right femur, subsequent encounter for closed fracture with routine healing (principal); I10 Essential (primary) hypertension; E03.9 Hypothyroidism, unspecified; R56.9 Unspecified convulsions; G43.909 Migraine, unspecified, not intractable, without status migrainosus; F17.210 Nicotine dependence, cigarettes, uncomplicated; Z88.1 Allergy status to other antibiotic agents; W19.XXXD Unspecified fall, subsequent encounter | CPT/HCPCS: 73564; 99213 ==